=== PATIENT | male | born 1955 | race African-American/Black ===

== ENCOUNTER 2016-10-29 07:36 | Day surgery (SDC) | payer OTHER ==
[2016-10-24 14:34] VITALS: BMI 42.5
[~2016-10-29 07:36] MED LIST: DEXAMETHASONE SOD PHOSPHATE 10 MG/ML 1 ML VIAL IV ONE; HEPARIN SODIUM,PORCINE 5,000 UNIT/ML 1 ML VIAL SQ ONE; HYDROmorphone 1 MG/ML 1 ML SYRINGE IVP PRN; LACTATED RINGERS 1,000 ML IV SCH; MIDAZOLAM 2 MG/2 ML VIAL IV PRN; ONDANSETRON 4 MG/2 ML VIAL IVP ONE; Pre Op ABX Message 1 EACH MISC MISCELLANE ONE; SCOPOLAMINE 1.5MG/72HR PATCH TRANSDERM ONE
[2016-10-29 08:12] VITALS: RESP 20; TEMP 98.1
[2016-10-29] MEDS ORDERED: LIDOCAINE 1% 20 ML VIAL (10MG/ML) FOR IV START INTRADERMA ONE (08:29)
--- NOTE | 2016-10-29 08:36 | P.GSHP ---
History of Present Illness H&P Date: 10/29/16 Chief Complaint: Chest wall skin lesion This a 60-year-old male referred from Dr. Ellis. Patient presents today for excision of chest wall skin lesion. Patient appears to have a chronically inflamed cyst near the middle of his chest. Past Medical History Past Medical History: Hypertension, Sleep Apnea/CPAP/BIPAP Additional Past Medical History / Comment(s): frequent urination History of Any Multi-Drug Resistant Organisms: None Reported Past Surgical History: Orthopedic Surgery Additional Past Surgical History / Comment(s): left knee surgery Past Anesthesia/Blood Transfusion Reactions: No Reported Reaction Past Psychological History: No Psychological Hx Reported Smoking Status: Never smoker Past Alcohol Use History: None Reported Past Drug Use History: None Reported - Past Family History Mother Family Medical History: No Reported History Medications and Allergies Home Medications Medication Instructions Recorded Confirmed Type Felodipine [Felodipine ER] 10 mg PO DAILY 09/16/14 10/24/16 History Furosemide [Lasix] 20 mg PO DAILY 09/16/14 10/24/16 History Lisinopril-Hctz 20-25 mg 1 each PO BID 09/16/14 10/24/16 History [Zestoretic 20-25] Potassium Chloride ER [K-Dur 20] 20 meq PO DAILY 09/16/14 10/29/16 History Spironolactone 50 mg PO DAILY 09/16/14 10/24/16 History Tamsulosin HCl [Flomax] 0.4 mg PO DAILY 10/24/16 10/24/16 History Allergies Allergy/AdvReac Type Severity Reaction Status Date / Time No Known Allergies Allergy Verified 10/24/16 14:25 Surgical - Exam Vital Signs Temp Pulse Resp BP Pulse Ox 98.1 F 81 20 151/53 97 10/29/16 08:10 10/29/16 08:10 10/29/16 08:10 10/29/16 08:10 10/29/16 08:10 - General well developed, no distress - Eyes PERRL - ENT normal pinna - Neck no masses - Respiratory normal expansion - Cardiovascular Rhythm: regular - Abdomen Abdomen: soft, non tender - Integumentary Chronic inflamed 2 cm cyst near mid chest wall. Assessment and Plan Plan: Chronic inflamed chest wall cyst. We'll perform excisional biopsy.
[2016-10-29] MEDS ORDERED: PROPOFOL 10 MG/ML 20 ML VIAL IV ONE (08:47)
[2016-10-29] MEDS ORDERED: MIDAZOLAM 2 MG/2 ML VIAL ONE (08:47)
[2016-10-29] MEDS ORDERED: fentaNYL (PF) 50 MCG/ML 2 ML AMP ONE (08:47)
[2016-10-29] MEDS ORDERED: BUPIVACAIN-EPI 0.25%-1:200,000 30 ML VIAL SQ ONE ×3 (08:57)
[2016-10-29] MEDS ORDERED: SODIUM CHLORIDE 0.9% 100 ML with ceFAZolin 2,000 MG IV ONE ×2 (09:02)
--- NOTE | 2016-10-29 09:25 | P.OP ---
Date of Procedure: 10/29/16 Preoperative Diagnosis: Chest wall skin lesion Postoperative Diagnosis: Chest wall skin lesion Procedure(s) Performed: Excision of chest wall skin lesion Anesthesia: MAC Surgeon: Kamaljit Velazquez Estimated Blood Loss (ml): 3 Pathology: other (Chest wall skin lesion) Condition: stable Disposition: PACU Description of Procedure: Patient's placed on the operating room table in the supine position. He received IV sedation. His chest wall was prepped and draped in usual sterile fashion. The skin was anesthetized 1% local Xylocaine. And then elliptical skin incision was made around the chest wall skin lesion. The Bovie was used for hemostasis. Using which cautery the subcutaneous tissue divided. The specimen measured approximately 3 x 2 cm. The wound was closed with interrupted 3-0 Monocryl suture. Dermabond dressings was applied. Patient was sent to recovery in stable condition.
[2016-10-29 09:38] VITALS: BP 147/89; PULSE 70
== END 2016-10-29 11:00 | disposition home or self-care (01) ==
LOC: OR 07:36
PROVIDERS: ATTEND Surgery
DX: L72.9 Follicular cyst of the skin and subcutaneous tissue, unspecified (principal); L90.5 Scar conditions and fibrosis of skin; L08.9 Local infection of the skin and subcutaneous tissue, unspecified; I10 Essential (primary) hypertension; G47.33 Obstructive sleep apnea (adult) (pediatric); N40.1 Benign prostatic hyperplasia with lower urinary tract symptoms; R35.0 Frequency of micturition; Z79.899 Other long term (current) drug therapy
CPT/HCPCS: 11404; 88304; 84132; J2250; J1644; J1100; J2405; J3010; J0690; J2704; 99152; 99153

== ENCOUNTER → 2017-06-13 | Outpatient (CLI) | payer OTHER ==
--- NOTE | 2017-06-13 15:07 | PN ---
PROGRESS NOTE DATE OF SERVICE: 06/13/2017 A 61-year-old gentleman who has been [facility] for treatment of obstructive sleep apnea-hypopnea syndrome. The patient continued to use his CPAP equipment without significant problems. No snoring with the machine. Sometimes he feels sleepiness during the day. [place] Sleepiness Scale is 12. MEDICATIONS: Lisinopril, spironolactone, amlodipine, furosemide. I checked patient's CPAP unit. He used it for the last month 21/30 nights, 15 more than 4 hours. Leak is 11 L/min. CPAP pressure is 14 cm of water. Apnea-hypopnea index is 1 per hour, which is normal range. PHYSICAL EXAM: Patient in no distress. BP 163/89, HR 70, RR 16, height 5, 8, weight 295, BMI 44.8, temperature 97.7, oxygen saturation from 94%. Oropharynx extremely low position of soft palate. ABDOMEN: Obese. EXTREMITIES: 1+ bilateral low leg edema. IMPRESSION: 1. Severe obstructive sleep apnea-hypopnea syndrome on control with CPAP at 14 cm of water. Patient benefiting from treatment/. 2. Obesity, patient's weight is about the same as 2 years ago, decreased from 296 down to 295. 3. Hypertension. 4. History of over-active bladder. 5. Swelling of the legs up. PLAN: 1. Continue treatment with CPAP every night for the whole night. 2. Prescription for all necessary CPAP supplies, including mask, tube, filters. 3. No driving if feeling sleepiness. 4. Losing weight. 5. Followup visit in 1 year. Thank you very much for allowing me to participate in the management of your patient. Sincerely, Gilberto Malcolm MD, PhD, FAASM Diplomat of [place] [employer] Sleep Medicine Board by [place] [employer] Product Management Analyst of [facility] [place] MMODL / IJN: [id number] /
== END | disposition home or self-care (01) ==
LOC: SLEEP 11:42
PROVIDERS: ATTEND Internal Medicine
DX: G47.33 Obstructive sleep apnea (adult) (pediatric) (principal); E66.9 Obesity, unspecified; I10 Essential (primary) hypertension; M79.89 Other specified soft tissue disorders

== ENCOUNTER → 2017-06-22 | Outpatient (CLI) | payer MEDICARE, OTHER ==
--- NOTE | 2017-06-22 14:01 | XR ---
EXAMINATION TYPE: XR lumbar spine 2 or 3V DATE OF EXAM: 06/22/2017 CLINICAL HISTORY: pain TECHNIQUE: Three views of the lumbar spine are submitted. COMPARISON: None. FINDINGS: There are 5 lumbar type vertebral bodies identified. The lumbar spine shows satisfactory alignment w ithout evidence of acute fracture or dislocation. Vertebral body heights are within normal limits. Disc spaces are within normal limits. The overlying soft tissue appears unremarkable. IMPRESSION: No acute fracture or dislocation is seen in the lumbar spine. ICD 10 NO FRACTURE, INITIAL EVALUATION
== END ==
LOC: RADXRMAIN 10:30
PROVIDERS: ATTEND Internal Medicine
DX: M54.5 Low back pain (principal)
CPT/HCPCS: 72100

== ENCOUNTER → 2019-06-11 | Outpatient (CLI) | payer MEDICARE, OTHER ==
--- NOTE | 2019-06-12 10:46 | ECHOF ---
Referral Reason:R06.02 shortness of breath MEASUREMENTS -------- HEIGHT: 172.7 cm WEIGHT: 135.6 kg BP: RVIDd: 2.9 cm (< 3.3) IVSd: 2.1 cm (0.6 - 1.1) LVIDd: 5.0 cm (3.9 - 5.3) LVPWd: 1.5 cm (0.6 - 1.1) IVSs: 2.6 cm LVIDs: 3.2 cm LVPWs: 2.2 cm LAESV Index (A-L): 29.52 ml/m Ao Diam: 3.4 cm (2.0 - 3.7) AV Cusp: 2.4 cm (1.5 - 2.6) LA Diam: 4.3 cm (2.7 - 3.8) MV EXCURSION: 21.085 mm (> 18.000) MV EF SLOPE: 177 mm/s (70 - 150) EPSS: 0.8 cm MV E Rolf: 1.17 m/s MV DecT: 161 ms MV A Rolf: 0.87 m/s MV E/A Ratio: 1.35 RAP: 5.00 mmHg RVSP: 27.79 mmHg FINDINGS -------- Sinus rhythm. This was a technically adequate study. The left ventricular size is normal. There is severe concentric left ventricular hypertrophy. Ove rall left ventricular systolic function is low-normal with, an EF between 50 - 55 %. The right ventricle is normal in size. The left atrium is mildly dilated. LA is midly dilated 29-33ml/m2. The right atrial size is normal. The aortic valve is trileaflet and appears structurally normal. The mitral valve is normal. There is trace mitral regurgitation. The tricuspid valve appears structurally normal. Trace tricuspid regurgitation present. Right trini tricular systolic pressure is normal at < 35 mmHg. There is no pulmonic regurgitation present. The aortic root size is normal. Normal inferior vena cava with normal inspiratory collapse consistent with estimated right atrial pre ssure of 5 mmHg. There is a small, generalized pericardial effusion present. CONCLUSIONS -------- 1. Sinus rhythm. 2. This was a technically adequate study. 3. The left ventricular size is normal. 4. There is severe concentric left ventricular hypertrophy. 5. Overall left ventricular systolic function is low-normal with, an EF between 50 - 55 %. 6. The right ventricle is normal in size. 7. The left atrium is mildly dilated. 8. LA is midly dilated 29-33ml/m2. 9. The right atrial size is normal. 10. The aortic valve is trileaflet and appears structurally normal. 11. The mitral valve is normal. 12. There is trace mitral regurgitation. 13. The tricuspid valve appears structurally normal. 14. Trace tricuspid regurgitation present. 15. Right ventricular systolic pressure is normal at < 35 mmHg. 16. There is no pulmonic regurgitation present. 17. The aortic root size is normal. 18. Normal inferior vena cava with normal inspiratory collapse consistent with estimated right atrial pressure of 5 mmHg. 19. There is a small, generalized pericardial effusion present. MANAGER PUBLIC: Tita Dave RDCS
== END | disposition home or self-care (01) ==
LOC: RADECHMAIN 16:34
PROVIDERS: ATTEND Internal Medicine
DX: I31.3 Pericardial effusion (noninflammatory) (principal); I51.7 Cardiomegaly
CPT/HCPCS: 93306

== ENCOUNTER 2019-06-17 16:00 | Emergency (ER) | payer MEDICARE, OTHER ==
[2019-06-17 16:05] VITALS: RESP 18
[2019-06-17] MEDS ORDERED: ACETAMINOPHEN TAB 325 MG TAB PO STA (16:34)
--- NOTE | 2019-06-17 17:23 | XR ---
EXAMINATION TYPE: XR knee 4V RT DATE OF EXAM: 06/17/2019 CLINICAL HISTORY: TECHNIQUE: Three views of the right knee are obtained. COMPARISON: None. FINDINGS: Medial and lateral joint spaces are normal. There is abnormal superior position of the trejo lla. This is consistent with complete tear of the infrapatellar tendon. There is some anterior soft t issue mild swelling. There is possible avulsion chip fracture fragment that measures 12 x 4 mm over t he anterior knee joint space arising from the patella. IMPRESSION: Complete tear of the infrapatellar tendon with possible infrapatellar displaced chip fracture.
--- NOTE | 2019-06-17 18:10 | ED ---
General Adult HPI - General Chief complaint: Extremity Injury, Lower Stated complaint: knee pain Time Seen by Provider: 06/17/19 16:06 Source: patient, RN notes reviewed, old records reviewed Mode of arrival: ambulatory Limitations: no limitations - History of Present Illness Initial comments: 63-year-old male patient presents ED chief complaint right knee pain. Patient reports that he was walking when he became unstable, fell backwards, his right foot became trapped underneath a table C fell backwards. Patient reports he felt a pop in his knee. Denies any sensation of dislocation. Denies any trauma to head or neck. Cheir complaint is right knee pain. Systemic: Pt denies fatigue, fever/chills, rash. Pt denies weakness, night sweats, weight loss. Neuro: Pt denies headache, visual disturbances, syncope or pre-syncope. HEENT: Pt denies ocular discharge or irritation, otalgia, rhinorrhea, pharyngitis or notable lymphadenopathy. Cardiopulmonary: Pt denies chest pain, SOB, heart palpitations, dyspnea on exertion. Abdominal/GI: Pt denies abdominal pain, n/v/d. : Pt denies dysuria, burning w/ urination, frequency/urgency. Denies new onset urinary or bowel incontinence. MSK: Pt denies myalgia, loss of strength or function in extremities. Neuro: Pt denies new onset weakness, paresthesias. - Related Data Home Medications Medication Instructions Recorded Confirmed Felodipine [Felodipine ER] 10 mg PO DAILY 09/16/14 10/24/16 Furosemide [Lasix] 20 mg PO DAILY 09/16/14 10/24/16 Lisinopril-Hctz 20-25 mg 1 each PO BID 09/16/14 10/24/16 [Zestoretic 20-25] Potassium Chloride ER [K-Dur 20] 20 meq PO DAILY 09/16/14 10/29/16 Spironolactone 50 mg PO DAILY 09/16/14 10/24/16 Tamsulosin HCl [Flomax] 0.4 mg PO DAILY 10/24/16 10/24/16 Allergies Allergy/AdvReac Type Severity Reaction Status Date / Time No Known Allergies Allergy Verified 06/17/19 16:02 Review of Systems ROS Statement: Those systems with pertinent positive or pertinent negative responses have been documented in the HPI. ROS Other: All systems not noted in ROS Statement are negative. Past Medical History Past Medical History: Hypertension, Sleep Apnea/CPAP/BIPAP Additional Past Medical History / Comment(s): frequent urination History of Any Multi-Drug Resistant Organisms: None Reported Past Surgical History: Orthopedic Surgery Additional Past Surgical History / Comment(s): left knee surgery Past Anesthesia/Blood Transfusion Reactions: No Reported Reaction Past Psychological History: No Psychological Hx Reported Smoking Status: Never smoker Past Alcohol Use History: None Reported Past Drug Use History: None Reported - Past Family History Mother Family Medical History: No Reported History General Exam - General Exam Comments Initial Comments: Constitutional: NAD, AOX3, Pt has pleasant affect. HEENT: NC/AT, trachea midline, neck supple, no lymphadenopathy. Posterior pharynx non erythematous, without exudates. External ears appear normal, without discharge. Mucous membranes moist. Eyes PERRLA, EOM intact. There is no scleral icterus. No pallor noted. Cardiopulmonary: RRR, no murmurs, rubs or gallops, no JVD noted. Lungs CTAB in anterior and posterior bray. No peripheral edema. Abdominal exam: Abdomen soft and non-distended. Abdomen non-tender to palpation in all 4 quadrants. Bowel sounds active in LLQ. No hepatosplenomegaly. No ecchymosis Neuro: CN II-XII intact. No nuchal rigidity. No raccon eyes, no nur sign, no hemotympanum. No cervical spinal tenderness. MSK: High riding patella right knee. Anterior knee tender palpation. Distal pulses intact and equal. Sensation intact. No posterior calf tenderness bilaterally, homans sign negative bilaterally. Posterior tibialis and radial pulse +2 bilaterally. Sensation intact in upper and lower extremities. Full active ROM lower extremities, 5/5 stregnth. Limitations: no limitations Course Vital Signs 06/17/19 06/17/19 06/17/19 16:02 17:36 18:16 Temperature 97.9 F 98.2 F Pulse Rate 90 82 Respiratory 18 18 Rate Blood Pressure 189/115 204/102 201/100 O2 Sat by Pulse 95 95 Oximetry Medical Decision Making - Medical Decision Making 63-year-old male patient presented to ED chief complaint right knee pain following fall. Patient vital signs displayed hypertension, patient reports that he has not taken his antihypertensives today. Denies any headache, changes in vision neurologic exam intact. Physical exam displayed right knee tender to palpation, high riding patella. Plain films displayed complete tear of the infrapatellar tendon possible infertility displaced hip fracture. Patient placed in knee immobilizer. Patient discharged with orthopedic follow-up tomorrow. Patient will use crutches, not related right lower extremity. Case discussed with Dr. Martinez. Disposition Clinical Impression: Patellar tendon rupture Disposition: HOME SELF-CARE Condition: Stable Instructions (If sedation given, give patient instructions): Tendon Rupture (ED) Additional Instructions: Patient to adhere to previously discussed treatment plan and will take medication(s) as directed. Patient to follow up with PCP in 1-2 days. Patient to return to ED if symptoms do not improve. Follow-up with orthopedic consult tomorrow. Continue to wear a knee immobilizer until follow-up. Use crutches, do not bear weight on right lower extremity. Is patient prescribed a controlled substance at d/c from ED?: No Referrals: Lesli Putnam MD [Primary Care Provider] - 1-2 days Jack Wallis MD [STAFF PHYSICIAN] - 1-2 days
[2019-06-17 18:17] VITALS: BP 201/100; PULSE 82; TEMP 98.2
--- NOTE | 2019-06-17 23:51 | ED ---
Medical Decision Making - Medical Decision Making pt will take antihypertensives at home and monitor bp Disposition Clinical Impression: Patellar tendon rupture Disposition: HOME SELF-CARE Condition: Stable Instructions (If sedation given, give patient instructions): Tendon Rupture (ED) Additional Instructions: Patient to adhere to previously discussed treatment plan and will take medication(s) as directed. Patient to follow up with PCP in 1-2 days. Patient to return to ED if symptoms do not improve. Follow-up with orthopedic consult tomorrow. Continue to wear a knee immobilizer until follow-up. Use crutches, do not bear weight on right lower extremity. Is patient prescribed a controlled substance at d/c from ED?: No Referrals: Jack Wallis MD [STAFF PHYSICIAN] - 1-2 days Lesli Putnam MD [Primary Care Provider] - 1-2 days
== END 2019-06-17 18:16 | disposition home or self-care (01) ==
LOC: EC 16:00
DX: S76.111A Strain of right quadriceps muscle, fascia and tendon, initial encounter (principal); I10 Essential (primary) hypertension; G47.30 Sleep apnea, unspecified; Z79.899 Other long term (current) drug therapy; W19.XXXA Unspecified fall, initial encounter; Y93.01 Activity, walking, marching and hiking
CPT/HCPCS: 99284

== ENCOUNTER → 2021-02-17 | Outpatient (CLI) | payer MEDICARE, BC ==
--- NOTE | 2021-02-17 15:54 | US ---
EXAMINATION TYPE: US kidneys/renal and bladder DATE OF EXAM: 02/17/2021 COMPARISON: NONE CLINICAL HISTORY: N18.32 chronic kidney disease stage 3b. CKD EXAM MEASUREMENTS: Right Kidney: 9.8 x 4.7 x 4.3 cm Left Kidney: 10.5 x 5.0 x 4.2 cm Technical limitations due to patient's body habitus and overlying bowel Right Kidney: no evidence of hydronephrosis or renal calculi Left Kidney: Probable cyst at the upper pole = 3.1 x 3.1 x 3.1cm no hydronephrosis or shadowing kathleen al calculi Bladder: not fully distended Bilateral Jets seen: no No evidence of hydronephrosis or shadowing renal calculi. The urinary bladder was not fully distended . IMPRESSION: The study is limited due to patient's body habitus and overlying bowel gas. Probable cyst at the upper pole of the left kidney measuring 3.1 cm. No hydronephrosis or renal calculi.
== END | disposition home or self-care (01) ==
LOC: RADUSWWP 12:37
PROVIDERS: ATTEND Internal Medicine Nephrology
DX: N18.32 Chronic kidney disease, stage 3b (principal)
CPT/HCPCS: 76770

== ENCOUNTER → 2022-07-06 | Outpatient (CLI) | payer MEDICARE, BC ==
[2022-07-06 15:00] LABS: African American GFR (CKD) 34.4 (60.0-200.0); Albumin 4.3 g/dL (3.8-4.9); Anion Gap 8.2 mmol/L (10.00-18.00); BUN/Creat Ratio 11.6 Ratio (12.00-20.00); Blood Urea Nitrogen 26.1 mg/dL (9.0-27.0); Calcium 9.7 mg/dL (8.7-10.3); Carbon Dioxide 34.1 mmol/L (20.0-27.5); Non-African American GFR(CKD) 29.7 (60.0-200.0); Phosphorus 5.8 mg/dL (2.4-5.1); Potassium 4.7 mmol/L (3.5-5.5); Protein, Total 7.1 g/dL (6.2-8.2)
[2022-07-09 13:46] LABS: Albumin 3.84 g/dL (3.80-4.90); Gamma Globulin 1.52 g/dL (0.70-1.50)
== END | disposition home or self-care (01) ==
LOC: LABWHC1 09:07
PROVIDERS: ATTEND Internal Medicine
DX: Z00.00 Encounter for general adult medical examination without abnormal findings (principal); N18.32 Chronic kidney disease, stage 3b
CPT/HCPCS: 36415; 80069; 84165; 84166

== ENCOUNTER 2022-12-13 10:24 | Emergency (ER) | payer BC, MEDICARE, OTHER ==
[2022-12-13 10:35] VITALS: RESP 18
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
[2022-12-13 12:33] VITALS: BP 227/111; PULSE 82
== END 2022-12-13 13:20 | disposition home or self-care (01) ==
LOC: EC 10:24
DX: M25.552 Pain in left hip (principal); I10 Essential (primary) hypertension; G47.30 Sleep apnea, unspecified; V43.52XA Car driver injured in collision with other type car in traffic accident, initial encounter
CPT/HCPCS: 70450; 71045; 72125; 73502; 99285

== ENCOUNTER → 2023-01-24 | Outpatient (CLI) | payer OTHER ==
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
== END | disposition home or self-care (01) ==
LOC: RADMRIMAIN 07:12
PROVIDERS: ATTEND Family Medicine
DX: G93.89 Other specified disorders of brain (principal); R51.9 Headache, unspecified
CPT/HCPCS: 70551

== ENCOUNTER → 2023-02-28 | Outpatient (CLI) | payer OTHER ==
[2023-02-28 15:57] LABS: Basophils # (A) 0.04 X 10*3/uL (0.00-0.10); Basophils % (A) 0.6 %; Eosinophils # (A) 0.39 X 10*3/uL (0.04-0.35); Eosinophils % (A) 5.4 %; HCT 44.2 % (39.6-50.0); HGB 13.8 g/dL (13.0-17.0); Immature Grans, Automated 0.1 %; Lymphocytes # (A) 2.06 X 10*3/uL (0.90-5.00); Lymphocytes % (A) 28.6 %; MCH 30.1 pg (27.0-32.0); MCHC 31.2 g/dL (32.0-37.0); MCV 96.5 fL (80.0-97.0); Mean Platelet Volume 10.6 fL (9.5-12.2); Monocytes # (A) 0.72 X 10*3/uL (0.20-1.00); NRBC Per 100 WBC 0 /100 WBCS (0.0-0.0); Neutrophils # (A) 3.98 X 10*3/uL (1.80-7.70); Neutrophils % (A) 55.3 %; Platelet Count 215 X 10*3/uL (140-440); RBC 4.58 X 10*6/uL (4.40-5.60); RDW 13.2 % (11.5-14.5)
[2023-02-28 16:44] LABS: African American GFR (CKD) 39.2 (60.0-200.0); Albumin/Globulin Ratio 1.41 (1.60-3.17); Anion Gap 9.6 mmol/L (10.00-18.00); BUN/Creat Ratio 13.13 Ratio (12.00-20.00); Blood Urea Nitrogen 26.4 mg/dL (9.0-27.0); Carbon Dioxide 28.3 mmol/L (20.0-27.5); Globulin 2.8 g/dL (1.6-3.3); Non-African American GFR(CKD) 33.8 (60.0-200.0); Potassium 4.8 mmol/L (3.5-5.5); T4, Free (Free Thyroxine) 1.11 ng/dL (0.800-1.800); Total Bilirubin 0.5 mg/dL (0.30-1.20); Total Protein 6.8 g/dL (6.2-8.2)
== END | disposition home or self-care (01) ==
LOC: LABWHC1 08:58
PROVIDERS: ATTEND Nurse Practitioner Acute Care
DX: E55.9 Vitamin D deficiency, unspecified (principal); E53.9 Vitamin B deficiency, unspecified; R41.3 Other amnesia; V89.9XXA Person injured in unspecified vehicle accident, initial encounter
CPT/HCPCS: 36415; 80053; 82306; 82607; 84207; 84439; 84443; 84481; 85025

== ENCOUNTER → 2023-04-24 | Outpatient (CLI) | payer MEDICARE, BC ==
[2023-04-24 18:14] LABS: Creatinine,Urine Random 535.8 mg/dL
[2023-04-24 22:19] LABS: Basophils # (A) 0.04 X 10*3/uL (0.00-0.10); Basophils % (A) 0.6 %; Eosinophils # (A) 0.24 X 10*3/uL (0.04-0.35); Eosinophils % (A) 3.4 %; HCT 45.4 % (39.6-50.0); HGB 14.3 d/dL (13.0-17.0); Lymphocytes # (A) 1.99 X 10*3/uL (0.90-5.00); Lymphocytes % (A) 27.9 %; MCHC 31.5 d/dL (32.0-37.0); MCV 98.3 FL (80.0-97.0); Mean Platelet Volume 10.2 FL (9.5-12.2); Monocytes # (A) 0.57 X 10*3/uL (0.20-1.00); NRBC Per 100 WBC 0 X 10*3/uL (0.00-0.01); Neutrophils # (A) 4.28 X 10*3/uL (1.80-7.70); Platelet Count 247 X 10*3/uL (140-440); RBC 4.62 X 10*6/uL (4.40-5.60); RDW 13.4 % (11.5-14.5); WBC 7.13 X 10*3/uL (4.50-10.00)
[2023-04-25 04:45] LABS: % Iron Saturation 22.87 (15.00-50.00); Albumin 4.4 d/dL (3.8-4.9); Magnesium 2.2 mg/dL (1.5-2.4); Uric Acid 9.3 mg/dL (3.7-8.7)
[2023-04-25 15:57] LABS: BUN/Creat Ratio 10.79 Ratio (12.00-20.00); Blood Urea Nitrogen 25.9 mg/dL (9.0-27.0); Calcium 9.2 mg/dL (8.7-10.3); Carbon Dioxide 26.1 mmol/L (21.6-31.8); Chloride 102 mmol/L (96-109); Glucose 112 mg/dL (70-110); Potassium 4.3 mmol/L (3.5-5.5); Sodium 142 mmol/L (135-145)
[2023-04-25 18:37] LABS: Amorphous Sediment,Urine Present (None Seen)
[2023-04-25 18:38] LABS: Appearance,Urine Turbid (Clear); Bacteria,Urine None Seen (None Seen); Bilirubin,Urine Negative (Negative); Blood,Urine Negative (Negative); Color,Urine Dark Yellow (Yellow); Ketones,Urine Trace (Negative); Nitrite,Urine Negative (Negative); PH, Urine 5.5; Specific Gravity,Urine 1.026 (1.001-1.030)
== END | disposition home or self-care (01) ==
LOC: LABWHC1 14:27
PROVIDERS: ATTEND Nurse Practitioner Family
DX: N18.32 Chronic kidney disease, stage 3b (principal)
CPT/HCPCS: 36415; 80048; 81001; 82040; 82043; 82306; 82570; 82728; 83540; 83550; 83735; 83970; 84156; 84550; 85025

== ENCOUNTER → 2023-09-06 | Outpatient (CLI) | payer OTHER, BC ==
[2023-09-06 16:27] LABS: Creatinine,Urine Random 15.6 mg/dL; Protein/Creatinine Ratio,Urine 0.513
[2023-09-06 18:56] LABS: % Iron Saturation 20.62 (15.00-50.00); Albumin 4.2 g/dL (3.8-4.9); BUN/Creat Ratio 11.83 Ratio (12.00-20.00); Blood Urea Nitrogen 21.3 mg/dL (9.0-27.0); Calcium 9.2 mg/dL (8.7-10.3); Carbon Dioxide 27.6 mmol/L (21.6-31.8); Chloride 107 mmol/L (96-109); Glucose 95 mg/dL (70-110); Iron 67 UG/DL (65-175); Potassium 4.5 mmol/L (3.5-5.5); Sodium 145 mmol/L (135-145); Total Iron Binding Capacity 325 UG/DL (228-460); Uric Acid 7.5 mg/dL (3.7-8.7)
[2023-09-07 04:11] LABS: Appearance,Urine Clear (Clear); Bilirubin,Urine Negative (Negative); Blood,Urine Negative (Negative); Color,Urine Yellow (Yellow); Ketones,Urine Negative (Negative); Nitrite,Urine Negative (Negative); PH, Urine 5.5; Specific Gravity,Urine 1.006 (1.001-1.030); Urobilinogen,Urine 0.2 E.U./DL
[2023-09-07 04:25] LABS: Bacteria,Urine None Seen (None Seen)
== END | disposition home or self-care (01) ==
LOC: LABWHC1 13:09
PROVIDERS: ATTEND Nurse Practitioner Acute Care
DX: E55.9 Vitamin D deficiency, unspecified (principal); N18.32 Chronic kidney disease, stage 3b; N25.81 Secondary hyperparathyroidism of renal origin; M10.9 Gout, unspecified; N39.0 Urinary tract infection, site not specified; R80.9 Proteinuria, unspecified; D63.1 Anemia in chronic kidney disease
CPT/HCPCS: 36415; 80048; 81001; 82040; 82306; 82570; 82728; 83540; 83550; 83735; 83970; 84156; 84550; 85025

== ENCOUNTER → 2023-09-10 | Outpatient (CLI) | payer OTHER, BC ==
[2023-09-11 02:01] LABS: Basophils # (A) 0.02 X 10*3/uL (0.00-0.10); Basophils % (A) 0.3 %; Eosinophils % (A) 4.4 %; HCT 45.3 % (39.6-50.0); HGB 14.4 g/dL (13.0-17.0); Lymphocytes # (A) 2.21 X 10*3/uL (0.90-5.00); Lymphocytes % (A) 32.5 %; MCH 30.6 pg (27.0-32.0); MCHC 31.8 g/dL (32.0-37.0); MCV 96.4 FL (80.0-97.0); Mean Platelet Volume 10.7 FL (9.5-12.2); Monocytes # (A) 0.79 X 10*3/uL (0.20-1.00); Monocytes % (A) 11.6 %; NRBC Per 100 WBC 0 X 10*3/uL (0.00-0.01); Neutrophils # (A) 3.48 X 10*3/uL (1.80-7.70); Neutrophils % (A) 51.1 %; Platelet Count 195 X 10*3/uL (140-440); RDW 13.2 % (11.5-14.5); WBC 6.81 X 10*3/uL (4.50-10.00)
== END | disposition home or self-care (01) ==
LOC: LABWHC1 15:22
PROVIDERS: ATTEND Nurse Practitioner Acute Care
DX: N18.32 Chronic kidney disease, stage 3b (principal); D63.1 Anemia in chronic kidney disease; N25.81 Secondary hyperparathyroidism of renal origin; E55.9 Vitamin D deficiency, unspecified; M10.9 Gout, unspecified; N39.0 Urinary tract infection, site not specified; R80.9 Proteinuria, unspecified
CPT/HCPCS: 36415; 85025

== ENCOUNTER → 2024-01-02 | Outpatient (CLI) | payer OTHER, BC ==
[2024-01-02 14:51] LABS: Basophils # (A) 0.04 X 10*3/uL (0.00-0.10); Basophils % (A) 0.7 %; Eosinophils # (A) 0.31 X 10*3/uL (0.04-0.35); Eosinophils % (A) 5.2 %; HCT 45.7 % (39.6-50.0); HGB 14.6 g/dL (13.0-17.0); Lymphocytes # (A) 1.38 X 10*3/uL (0.90-5.00); MCH 30.9 pg (27.0-32.0); MCHC 31.9 g/dL (32.0-37.0); MCV 96.6 FL (80.0-97.0); Mean Platelet Volume 10.1 FL (9.5-12.2); Monocytes # (A) 0.46 X 10*3/uL (0.20-1.00); Monocytes % (A) 7.7 %; NRBC Per 100 WBC 0 X 10*3/uL (0.00-0.01); Neutrophils # (A) 3.79 X 10*3/uL (1.80-7.70); Neutrophils % (A) 63.2 %; Platelet Count 201 X 10*3/uL (140-440); RBC 4.73 X 10*6/uL (4.40-5.60); RDW 13.1 % (11.5-14.5); WBC 5.99 X 10*3/uL (4.50-10.00)
[2024-01-02 15:39] LABS: % Iron Saturation 22.12 (15.00-50.00); BUN/Creat Ratio 10.06 Ratio (12.00-20.00); Blood Urea Nitrogen 18.1 mg/dL (9.0-27.0); Calcium 9.2 mg/dL (8.7-10.3); Carbon Dioxide 30.7 mmol/L (21.6-31.8); Chloride 104 mmol/L (96-109); Glucose 146 mg/dL (70-110); Iron 71 UG/DL (65-175); Phosphorus 3.3 mg/dL (2.4-5.1); Potassium 4.2 mmol/L (3.5-5.5); Sodium 143 mmol/L (135-145); Total Iron Binding Capacity 321 UG/DL (228-460); Uric Acid 8.1 mg/dL (3.7-8.7)
[2024-01-02 20:39] LABS: Appearance,Urine Clear (Clear); Bilirubin,Urine Negative (Negative); Blood,Urine Negative (Negative); Color,Urine Yellow (Yellow); Ketones,Urine Negative (Negative); Nitrite,Urine Negative (Negative); Specific Gravity,Urine 1.007 (1.001-1.030); Urobilinogen,Urine 0.2 E.U./DL
[2024-01-02 20:52] LABS: Bacteria,Urine None Seen (None Seen)
[2024-01-02 21:11] LABS: Microalbumin Creatinine Ratio <34 mg/g Cr (0-30)
== END | disposition home or self-care (01) ==
LOC: LABWHC1 10:34
PROVIDERS: ATTEND Family Medicine
DX: E55.9 Vitamin D deficiency, unspecified (principal); N25.81 Secondary hyperparathyroidism of renal origin; M10.9 Gout, unspecified; N39.0 Urinary tract infection, site not specified; N18.32 Chronic kidney disease, stage 3b; D63.1 Anemia in chronic kidney disease; R80.9 Proteinuria, unspecified
CPT/HCPCS: 36415; 80048; 81001; 82040; 82043; 82306; 82570; 82728; 83540; 83550; 83735; 83970; 84100; 84550; 85025

== ENCOUNTER → 2024-01-13 | Outpatient (CLI) | payer MEDICARE, BC ==
--- NOTE | 2024-01-14 12:08 | US ---
EXAMINATION TYPE: US kidneys/renal and bladder DATE OF EXAM: 01/13/2024 COMPARISON: 02/17/2021 CLINICAL INDICATION: Male, 68 years old with history of N18.32 CHRONIC KIDNEY DISEAS,STAGE 3B; CKD EXAM MEASUREMENTS: Right Kidney: 9.6 x 5.2 x 5.3 cm Left Kidney: 10.2 x 5.3 x 5.2 cm Post Void Residual Volume: 25 mL Right Kidney: No hydronephrosis or masses seen Left Kidney: Hypoechoic cyst upper pole= 2.8 x 2.3 x 2.4 cm visualized on prior. Bladder: wnl Bilateral Jets seen: No Normal Post Void Residual: Yes IMPRESSION: 1. Simple appearing cyst upper pole left kidney.
== END | disposition home or self-care (01) ==
LOC: RADUSWWP 16:10
PROVIDERS: ATTEND Internal Medicine Nephrology
DX: N28.1 Cyst of kidney, acquired (principal); N18.32 Chronic kidney disease, stage 3b
CPT/HCPCS: 76770

== ENCOUNTER → 2024-03-03 | Outpatient (CLI) | payer MEDICARE, BC ==
--- NOTE | 2024-03-03 17:39 | US ---
EXAMINATION TYPE: US arterial LE single level DATE OF EXAM: 03/03/2024 12:59 PM CLINICAL INDICATION: Male, 68 years old with history of I73.9 PERIPHERAL VASCULAR DISEASE, UNSPECIFIE D; Pt states bilateral leg numbness and weakness History of: Smoker: No Hypertension: Yes Diabetic: Yes Hyperlipidemia: No TIA/CVA: No Previous Vascular Surgery: No CAD: No SD: No Vascular Ulcers: No Claudication: No Gangrene: No Doppler Waveforms: Right: Multiphasic Left: Multiphasic Right Brachial Pressure: 187 Left Brachial Pressure: 183 Ankle-Brachial Indices: Right: 1.1 Left: 1.1 (Vessel hardening > 1.4; Normal 0.9 - 1.4, Moderate 0.7 - 0.9, Severe 0.5-0.7) Toe Brachial Indices: Right: 0.9 Left: 1.0 IMPRESSION: Normal bilateral ankle-brachial indices
== END | disposition home or self-care (01) ==
LOC: RADUSWWP 12:22
PROVIDERS: ATTEND Internal Medicine
DX: I73.9 Peripheral vascular disease, unspecified (principal); E11.51 Type 2 diabetes mellitus with diabetic peripheral angiopathy without gangrene; R20.0 Anesthesia of skin; R53.1 Weakness
CPT/HCPCS: 93922

== ENCOUNTER → 2024-04-29 | Outpatient (CLI) | payer MEDICARE, BC ==
[2024-04-29 18:19] LABS: Basophils # (A) 0.03 X 10*3/uL (0.00-0.10); Basophils % (A) 0.6 %; Eosinophils # (A) 0.32 X 10*3/uL (0.04-0.35); HCT 46.2 % (39.6-50.0); Lymphocytes # (A) 1.48 X 10*3/uL (0.90-5.00); Lymphocytes % (A) 27.8 %; MCH 31.4 pg (27.0-32.0); MCHC 32.5 g/dL (32.0-37.0); MCV 96.9 FL (80.0-97.0); Mean Platelet Volume 10.9 FL (9.5-12.2); Monocytes # (A) 0.49 X 10*3/uL (0.20-1.00); Monocytes % (A) 9.2 %; NRBC Per 100 WBC 0 X 10*3/uL (0.00-0.01); Neutrophils % (A) 56.2 %; Platelet Count 166 X 10*3/uL (140-440); RBC 4.77 X 10*6/uL (4.40-5.60); RDW 12.7 % (11.5-14.5); WBC 5.33 X 10*3/uL (4.50-10.00)
[2024-04-29 18:43] LABS: % Iron Saturation 33.44 (15.00-50.00); BUN/Creat Ratio 8.11 Ratio (12.00-20.00); Blood Urea Nitrogen 14.6 mg/dL (9.0-27.0); Carbon Dioxide 27.2 mmol/L (21.6-31.8); Chloride 106 mmol/L (96-109); Glucose 107 mg/dL (70-110); Iron 103 UG/DL (65-175); Magnesium 1.9 mg/dL (1.5-2.4); Phosphorus 3.9 mg/dL (2.4-5.1); Potassium 4.5 mmol/L (3.5-5.5); Sodium 143 mmol/L (135-145); Total Iron Binding Capacity 308 UG/DL (228-460); Uric Acid 8.2 mg/dL (3.7-8.7)
[2024-04-29 18:54] LABS: Appearance,Urine Clear (Clear); Bilirubin,Urine Negative (Negative); Blood,Urine Negative (Negative); Color,Urine Yellow (Yellow); Ketones,Urine Negative (Negative); Nitrite,Urine Negative (Negative); Specific Gravity,Urine 1.009 (1.001-1.030); Urobilinogen,Urine 0.2 E.U./DL
[2024-04-29 18:59] LABS: Bacteria,Urine None Seen (None Seen)
[2024-04-29 20:28] LABS: Microalbumin Creatinine Ratio <18 mg/g Cr (0-30); Urine Creatinine 68.3 mg/dL (39.0-259.0)
== END | disposition home or self-care (01) ==
LOC: LABWHC1 14:40
PROVIDERS: ATTEND Internal Medicine Nephrology
DX: N39.0 Urinary tract infection, site not specified (principal); N25.81 Secondary hyperparathyroidism of renal origin; M10.9 Gout, unspecified; E55.9 Vitamin D deficiency, unspecified; N18.32 Chronic kidney disease, stage 3b; D63.1 Anemia in chronic kidney disease; R80.9 Proteinuria, unspecified
CPT/HCPCS: 36415; 80048; 81001; 82040; 82043; 82306; 82570; 82728; 83540; 83550; 83735; 83970; 84100; 84550; 85025

== ENCOUNTER → 2024-10-29 | Outpatient (CLI) | payer OTHER ==
[2024-10-29 14:50] LABS: Basophils # (A) 0.03 X 10*3/uL (0.00-0.10); Basophils % (A) 0.5 %; Eosinophils # (A) 0.31 X 10*3/uL (0.04-0.35); Eosinophils % (A) 5.4 %; HCT 40.7 % (39.6-50.0); HGB 13.3 g/dL (13.0-17.0); Lymphocytes # (A) 1.55 X 10*3/uL (0.90-5.00); Lymphocytes % (A) 27.1 %; MCH 30.2 pg (27.0-32.0); MCHC 32.7 g/dL (32.0-37.0); MCV 92.5 FL (80.0-97.0); Mean Platelet Volume 10.2 FL (9.5-12.2); Monocytes # (A) 0.52 X 10*3/uL (0.20-1.00); Monocytes % (A) 9.1 %; NRBC Per 100 WBC 0 X 10*3/uL (0.00-0.01); Neutrophils % (A) 57.7 %; Platelet Count 211 X 10*3/uL (140-440); RDW 13.2 % (11.5-14.5); WBC 5.72 X 10*3/uL (4.50-10.00)
[2024-10-29 15:30] LABS: Appearance,Urine Clear (Clear); Bilirubin,Urine Negative (Negative); Blood,Urine Negative (Negative); Color,Urine Yellow (Yellow); Ketones,Urine Negative (Negative); Nitrite,Urine Negative (Negative); PH, Urine 6.5; Urobilinogen,Urine 0.2 E.U./DL
[2024-10-29 15:36] LABS: Bacteria,Urine None Seen (None Seen)
[2024-10-29 18:54] LABS: Microalbumin Creatinine Ratio <17 mg/g Cr (0-30); Urine Creatinine 70.3 mg/dL (39.0-259.0)
[2024-10-29 19:30] LABS: % Iron Saturation 20.58 (15.00-50.00); BUN/Creat Ratio 12.13 Ratio (12.00-20.00); Blood Urea Nitrogen 18.2 mg/dL (9.0-27.0); Calcium 9.1 mg/dL (8.7-10.3); Chloride 106 mmol/L (96-109); Glucose 99 mg/dL (70-110); Iron 64 UG/DL (65-175); Magnesium 2.1 mg/dL (1.5-2.4); Phosphorus 3.7 mg/dL (2.4-5.1); Potassium 3.9 mmol/L (3.5-5.5); Sodium 145 mmol/L (135-145); Total Iron Binding Capacity 311 UG/DL (228-460); Uric Acid 7.4 mg/dL (3.7-8.7)
== END | disposition home or self-care (01) ==
LOC: LABWHC1 11:23
PROVIDERS: ATTEND Internal Medicine Nephrology
DX: E55.9 Vitamin D deficiency, unspecified (principal); D64.9 Anemia, unspecified; N25.81 Secondary hyperparathyroidism of renal origin; N18.32 Chronic kidney disease, stage 3b; M10.9 Gout, unspecified; N39.0 Urinary tract infection, site not specified
CPT/HCPCS: 36415; 80048; 81001; 82040; 82043; 82306; 82570; 82728; 83540; 83550; 83735; 83970; 84100; 84550; 85025

== ENCOUNTER → 2025-03-19 | Outpatient (CLI) | payer MEDICARE, OTHER ==
[2025-03-19 19:16] LABS: BUN/Creat Ratio 10.25 Ratio (12.00-20.00); Blood Urea Nitrogen 16.4 mg/dL (9.0-27.0); Calcium 8.9 mg/dL (8.7-10.3); Carbon Dioxide 27.7 mmol/L (21.6-31.8); Chloride 104 mmol/L (96-109); Glucose 89 mg/dL (70-110); Potassium 3.8 mmol/L (3.5-5.5); Sodium 142 mmol/L (135-145)
== END | disposition home or self-care (01) ==
LOC: LABWHC1 14:25
PROVIDERS: ATTEND Nurse Practitioner Family
DX: N18.32 Chronic kidney disease, stage 3b (principal)
CPT/HCPCS: 36415; 80048